=== PATIENT | male | born 1975 | race Caucasian/White ===

== ENCOUNTER → 2023-05-05 | Emergency (ER) | payer OTHER ==
[~2023-05-05] MED LIST: HYDROMORPHONE HCL 1 MG/ML INJ ONE; ONDANSETRON 4 MG/2 ML VIAL ONE
[2023-05-05 03:59] LABS: Absolute Lymphocytes (CBC) 4.4 K/uL (0.7-4.9); Hematocrit 43.9 % (39.6-49.0); Lymphocytes % 31.6 % (15.3-44.8); MCV 93.5 fL (80-100); MPV 7.5 fL (7.6-11.3); Platelets 529 thou/uL (152-406); RBC Red Blood Cell Count 4.69 M/uL (4.33-5.43)
[2023-05-05 04:13] LABS: Albumin 4.1 g/dL (3.4-5.0); Bilirubin Direct 0.2 mg/dL (0-0.2); Bilirubin Indirect, Calculated 0.4 mg/dL (0.2-0.8); Bilirubin Total 0.6 mg/dL (0.2-1.0); Potassium 3.9 mEq/L (3.5-5.1); Protein, Total 7.7 g/dL (6.4-8.2); Troponin High Sensitivity 11.3 pg/mL (<58.9)
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
--- NOTE | 2023-05-05 11:00 | RAD REPORT ---
EXAM DESCRIPTION: CT - Chest For Pe Angio - 05/05/2023 6:21 am CLINICAL HISTORY: The patient is 47 years old and is Male; CHEST PAIN Bed Name: 7 TECHNIQUE: Axial computed tomographic angiography images of the chest with intravenous contrast. S agittal and coronal reformatted images were created and reviewed. This CT exam was performed using one or more of the following dose reduction techniques: automated exposure control, adjustment of t he mA and/or kV according to patient size, and/or use of iterative reconstruction technique. MIP reconstructed images were created and reviewed. COMPARISON: No relevant prior studies available. FINDINGS: PULMONARY ARTERIES: No acute pulmonary embolism. AORTA: No acute findings. No thoracic aortic aneurysm. LUNGS: Trace biapical scarring. Mild centrilobular emphysematous changes. Slight right hemidiaphragm elevation with bibasilar subsegmental atelectasis, right greater t foster left. No additional focal consolidation. PLEURAL SPACE: Unremarkable No significant effusion. No pneumothorax. HEART: Unremarkable No cardiomegaly. No significant pericardial effusion. No evidence of RV d ysfunction. BONES/JOINTS: Degenerative changes of the bilateral shoulders, right greater than left. No acute fracture. No dislocation. SOFT TISSUES: Unremarkable LYMPH NODES: Unremarkable No enlarged lymph nodes. IMPRESSION: 1. No acute pulmonary embolism. 2. Slight right hemidiaphragm elevation with bibasilar subsegmental atelectasis, right greater than left. No additional focal consolidation. 3. Mild centrilobular emphysematous changes. Electronically signed by: Fadi Lyons MD 05/05/2023 05:27 AM CONTENT ENGINEER Due to temporary technical issues with the PACS/Fluency reporting system, reports are being signed by the in house radiologist without review as a courtesy to ensure prompt reporting. The interpreting r adiologist is fully responsible for the content of the report.
--- NOTE | 2023-05-05 11:31 | RAD REPORT ---
EXAM DESCRIPTION: RAD - Chest Single View - 05/05/2023 3:03 am CLINICAL HISTORY: CHEST PAIN COMPARISON: None. TECHNIQUE: XR CHEST 1 VIEW 05/05/2023 2:49 AM HEAD CHARRER FINDINGS: Cardiac silhouette is normal in size. Lungs are clear without consolidation, atelectasis, mass or edema. There is no pleural effusion. There is no pneumothorax. There are no acute osseous fin dings. IMPRESSION: Clear lungs. Electronically signed by: Sean Pabon MD 05/05/2023 04:00 AM HEAD CHARRER Due to temporary technical issues with the PACS/Fluency reporting system, reports are being signed by the in house radiologist without review as a courtesy to ensure prompt reporting. The interpreting r adiologist is fully responsible for the content of the report.
--- NOTE | 2023-05-05 11:32 | RAD REPORT ---
EXAM DESCRIPTION: RAD - Elbow Left 2 View - 05/05/2023 3:03 am CLINICAL HISTORY: PAIN COMPARISON: None. TECHNIQUE: XR ELBOW 1-2 VIEWS LEFT 05/05/2023 2:49 AM MANAGER SIX SIGMA FINDINGS: There is no fracture. Joint spaces are preserved. There is soft tissue swelling overlyin g the olecranon process. IMPRESSION: No acute osseous findings. Electronically signed by: Sean Pabon MD 05/05/2023 04:01 AM MANAGER SIX SIGMA Due to temporary technical issues with the PACS/Fluency reporting system, reports are being signed by the in house radiologist without review as a courtesy to ensure prompt reporting. The interpreting r adiologist is fully responsible for the content of the report.
[2023-05-05 11:51] VITALS: BP 148/92; TEMP 99.8; O2SAT 99
--- NOTE | 2023-05-08 17:04 | EKG ---
Test Date: 2023-05-05 Test Time: 03:50:26 Rfid Engineer: [place] MEASUREMENT RESULTS: Intervals: Rate: 69 AL: 144 QRSD: 74 QT: 412 QTc: 441 [place]: P: 73 AL: 144 QRS: 60 T: 68 INTERPRETIVE STATEMENTS: Normal sinus rhythm ST abnormality, possible digitalis effect Abnormal ECG No previous ECG available for comparison Electronically Signed On 05-08-23 16:54:53 SHIRT HEMMER by Mannie Alfonso
== END ==
LOC: ER 02:15
DX: M70.22 Olecranon bursitis, left elbow (principal); R07.89 Other chest pain; M54.9 Dorsalgia, unspecified; F41.9 Anxiety disorder, unspecified; F17.210 Nicotine dependence, cigarettes, uncomplicated; Z79.899 Other long term (current) drug therapy
CPT/HCPCS: 93005; 85025; 80048; 36415; 80076; 84484; 83880; 71275; 71045; 73070; 96375; 96374; 99284; Q9967; J1170; J2405